=== PATIENT | female | born 1975 | race African-American/Black ===

== ENCOUNTER → 2020-02-20 | Outpatient (CLI) | payer BC ==
--- NOTE | 2020-02-24 13:19 | RAD ---
DATE: 02/20/2020 EXAM: MAMMO TAY SCREENING BILATERAL HISTORY: Screening mammogram. COMPARISON: None. Baseline exam. This study was interpreted with the benefit of Computerized Aided Detection (CAD). Breast Density: SCATTERED The breast parenchyma shows scattered fibroglandular densities. Breast parenchyma level B. FINDINGS: There is a 1.8 cm ovoid focal asymmetry in the posterior right breast at 7:00, 14 cm posterior to the nipple. This is best seen on tomosynthesis. There are also several tubular focal asymmetries in the right breast in the subareolar region and at 9:00 1 cm posterior to the nipple that may be dilated duct. No suspicious mass in the left breast. No suspicious calcifications or architectural distortion. IMPRESSION: Focal asymmetry in the lower inner right breast and tubular focal asymmetries in the subareolar and outer right breast. BI-RADS CATEGORY: 0 INCOMPLETE: NEEDS ADDITIONAL IMAGING EVALUATION AND/OR PRIOR MAMMOGRAMS FOR COMPARISON. RECOMMENDED FOLLOW-UP: Recommend further evaluation with spot compression CC and MLO views and ultrasound of the right breast. Mammography is a sensitive method for finding small breast cancers, but it does not detect them all and is not a substitute for careful clinical examination. A negative mammogram does not negate a clinically suspicious finding and should not result in delay in biopsying a clinically suspicious abnormality. "Our facility is accredited by the [employer] Mammography [employer]." DAVIDD
== END ==
LOC: MAMMO 09:18
PROVIDERS: ATTEND Internal Medicine
DX: Z12.31 Encounter for screening mammogram for malignant neoplasm of breast (principal)
CPT/HCPCS: 77063; 77067

== ENCOUNTER → 2020-03-09 | Outpatient (CLI) | payer BC ==
--- NOTE | 2020-03-09 14:37 | RAD ---
EXAM: Right breast diagnostic mammogram; right breast sonogram. HISTORY: 44-year-old female presents for reduction of nodular asymmetry within the right breast demonstrated on a mammogram dated 02/20/2020. TECHNIQUE: Full-field digital and spot compression views of the right breast are obtained. Sonographic imaging of the right breast targeted to the site of nodularity was also performed. COMPARISON: 02/20/2020 BREAST PARENCHYMAL DENSITY: Level B - Scattered fibroglandular densities. FINDINGS: The nodular asymmetry of concern within the posterior right breast is less conspicuous with the additional mammographic views, favoring benignity. Sonographic imaging of the right breast demonstrates no suspicious finding. IMPRESSION: 1. Decreased conspicuity of nodular asymmetry within the posterior right breast and no suspicious sonographic finding in this location. This favors benignity. 2. BI-RADS Category 3: Probably benign finding(s). Precautionary short-term follow-up with a right breast diagnostic mammogram in 6 months is recommended. If your mammogram demonstrates that you have dense breast tissue, which could hide abnormalities, and if you have other risk factors for breast cancer that have been identified, you might benefit from supplemental screening tests that may be suggested by your ordering physician. Dense breast tissue, in and of itself, is a relatively common condition. This information is not provided to cause undue concern, but rather to raise your awareness and to promote discussion with your physician regarding the presence of other risk factors, in addition to dense breast tissue. A report of your mammography results will be sent to you and your physician. You should contact your physician if you have any questions or concerns regarding this report. Mammography is a sensitive method for finding small breast cancers, but it does not detect them all and is not a substitute for careful clinical examination. A negative mammogram does not negate a clinically suspicious finding and should not result in delay in biopsying a clinically suspicious abnormality. PQRS compliance statement - Patient information was entered into a reminder system with a target due date for the next mammogram. "Our facility is accredited by the [employer] Mammography [employer]." Electronically signed by: Nenita Fuchs MD (03/09/2020 2:34 PM) [id number]
== END ==
LOC: MAMMO 14:03
PROVIDERS: ATTEND Internal Medicine
DX: R92.8 Other abnormal and inconclusive findings on diagnostic imaging of breast (principal)
CPT/HCPCS: 76641; 77065

== ENCOUNTER → 2020-11-09 | Outpatient (CLI) | payer BC ==
--- NOTE | 2020-11-09 11:12 | RAD ---
[facility] DIGITAL UNILAT DIAGNOSTIC MAMMO WITH TAY 11/09/2020 10:41 AM INDICATION: Right breast follow up after diagnostic examination for asymmetry. COMPARISON: 03/09/2020 right mammogram, 02/20/2020 bilateral mammogram TECHNIQUE: 3D tomosynthesis was performed in CC and MLO projections. 2D views were obtained from the 3D data. CAD was utilized as needed. FINDINGS: There are no suspicious microcalcifications, masses or areas of architectural distortion. Right mammogram is compared to prior examinations appears unchanged. IMPRESSION: Negative bilateral mammogram. BI-RADS category: 1; Negative Recommendations: Recommend annual screening mammography in one year. Electronically signed by: Alvina Cabello MD (11/09/2020 11:09 AM) [id number]
== END ==
LOC: MAMMO 10:34
PROVIDERS: ATTEND Internal Medicine
DX: Z09 Encounter for follow-up examination after completed treatment for conditions other than malignant neoplasm (principal); R92.2 Inconclusive mammogram
CPT/HCPCS: 77065; G0279; 77061